=== PATIENT | male | born 1940 | race Caucasian/White ===

== ENCOUNTER → 2016-11-07 | Outpatient (CLI) | payer MEDICARE | END | disposition home or self-care (01) | LOC: RAD.S 10-20 15:10 → PTH.S 08:42 → RAD.S 09:30 | DX: J98.4 Other disorders of lung (principal); R91.1 Solitary pulmonary nodule; Z85.528 Personal history of other malignant neoplasm of kidney; Z85.48 Personal history of malignant neoplasm of epididymis; Z90.5 Acquired absence of kidney ==